=== PATIENT | male | born 1970 | race Asian ===

== ENCOUNTER 2019-05-15 04:42 | Emergency (ER) | payer BC ==
[~2019-05-15] VITALS: Ht 170.2 cm; Wt 84.1 kg
[2019-05-15 04:59] VITALS: TEMP 98
[2019-05-15 05:01] LABS: BASO # 0.1 (0.0-0.2); BASO % 0.7 % (0.0-2.0); EOS # 0.4 (0.0-0.7); EOS % 3.9 % (0-4.0); GRAN # 3.6 (1.4-6.5); GRAN % 39.4 % (42.2-75.2); HEMOGLOBIN 15.3 g/dl (13.5-18.0); LYMPH # 4.5 (1.2-3.4); LYMPH % 48.9 % (20.0-51.0); MEAN CELL VOLUME 89 fl (80.0-100.0); MEAN CORPUSCULAR HEMOGLOBIN 29 pg (27.0-31.0); MEAN CORPUSCULAR HGB CONC 33 g/dl (33.0-37.0); MEAN PLATELET VOLUME 10.1 fl (7.4-10.4); MONO # 0.6 (0.1-0.6); MONO % 6.8 % (1.7-9.3); PLATELET COUNT 246 K/mm3 (130-400); RED BLOOD COUNT 5.27 M/mm3 (4.20-5.60); REDCELL DISTRIBUTION WIDTH-CV 11.9 % (11.5-14.5)
[2019-05-15 05:07] LABS: ALANINE AMINOTRANSFERASE 37 U/L (21-72); ALBUMIN 4.6 gm/dL (3.5-5.0); ALKALINE PHOSPHATASE 74 U/L (50-136); ANION GAP 12 mmol/L (7-16); AST,SGOT 63 U/L (15-37); BILIRUBIN,TOTAL 1.2 mg/dL (0.0-1.0); BLOOD UREA NITROGEN 12 mg/dL (9-20); CALCIUM 9.2 mg/dL (8.4-10.2); CARBON DIOXIDE 27 mmol/L (22-30); CHLORIDE 105 mmol/L (98-107); CREATININE, serum 0.81 (0.66-1.25); GLUCOSE 152 mg/dL (74-106); POTASSIUM 3.1 mmol/L (3.4-5.0); SODIUM 144 mmol/L (137-145)
[2019-05-15 05:31] LABS: INR 0.9 (0.8-3.0); PROTHROMBIN TIME 9.9 SECONDS (9.7-12.8)
[2019-05-15 05:34] LABS: TROPONIN-I < 0.012 ng/mL (0.000-0.035)
[2019-05-15 10:00] VITALS: BP 96/69; PULSE 61
== END 2019-05-15 10:15 | disposition home or self-care (01) ==
LOC: COL.ER 04:42
PROVIDERS: Emergency Medicine
DX: R07.89 Other chest pain (principal)